=== PATIENT | female | born 1945 | race Caucasian/White ===

== ENCOUNTER 2018-07-24 12:16 | Inpatient (IN) | payer OTHER ==
[~2018-07-24] VITALS: Ht 162.6 cm; Wt 48.4 kg
[2018-07-24 12:17] VITALS: BP 115/57
[2018-07-24 12:19] VITALS: BP 108/63
--- NOTE | 2018-07-24 12:19 | NUR ---
PT SEEN IN ANOTHER ER FOR ANXIETY ON 07/05. PT'S REPORTS COMPLIANCE ISSUES OF MEDICATIONS PRESCRIBED ON THAT VISIT. PT UNABLE TO FOLLOW UP WITH PCP, DORIE THOMPSON. WHO ADVISED TO GO TO ER
[2018-07-24 13:05] LABS: URINE BILIRUBIN NEGATIVE (Negative); URINE BLOOD NEGATIVE (Negative); URINE CLARITY CLEAR; URINE COLOR YELLOW; URINE GLUCOSE-RANDOM* NEGATIVE (Negative); URINE KETONES NEGATIVE (Negative); URINE LEUKOCYTES-REFLEX NEGATIVE (Negative); URINE NITRITE-REFLEX NEGATIVE (Negative); URINE PROTEIN (DIPSTICK) NEGATIVE (Negative); URINE UROBILINOGEN 0.2 E.U./dl (0.2-1.0)
[2018-07-24 13:11] LABS: HEMATOCRIT 40.3 % (37.0-47.0); HEMOGLOBIN 13.2 gm/dL (12.0-15.0); MCH 30.8 pg (26.0-34.0); MCHC 32.9 g/dL (28.0-37.0); MCV 93.8 fL (80.0-100.0); RBC 4.29 mil/uL (4.20-5.00); WBC 5.1 thou/uL (4.0-11.0)
[2018-07-24 13:22] LABS: CALCIUM 9.8 mg/dL (8.5-10.1); CREATININE 0.7 mg/dL (0.6-1.0); POTASSIUM 4.2 mmol/L (3.5-5.1)
[2018-07-24] MEDS ORDERED: BUSPIRONE HCL5 MG PO (13:45)
[2018-07-24] MEDS ORDERED: CITRACAL + D31 EACH PO (13:46)
[2018-07-24] MEDS ORDERED: VITAMIN D1000 UNI1 PO (13:46)
[2018-07-24] MEDS ORDERED: CYMBALTA60 MG PO (13:47)
[2018-07-24] MEDS ORDERED: CLONAZEPAM 0.50.5 M1 PO (13:47)
[2018-07-24] MEDS ORDERED: LIDODERM1 EACH TRANSDERM (13:48)
[2018-07-24] MEDS ORDERED: SALMON OIL 1,01 EACH PO (13:48)
[2018-07-24] MEDS ORDERED: FLAXSEED OIL1000 MG PO (13:48)
[2018-07-24] MEDS ORDERED: ZEGERID OTC 201 EACH PO (13:49)
[2018-07-24 14:10] VITALS: BP 108/63
[2018-07-24 14:54] VITALS: BP 120/82
[2018-07-24 16:04] VITALS: BP 117/65
--- NOTE | 2018-07-24 19:10 | NUR ---
PT ARRIVES TO FLOOR VIA CART FROM ER -ACCOMPNIED BY ADAM WHO IS ALSO PT DPOA-PER INTERVIEW WITH PT/ AND REVIEW OF RECORDS SENT TO UNIT-PT IS REPORTED BY TO HAVE INCREASING ANXIETY-CONSTANT RUMINATION RE MULTIPLE ISSUES WHICH BELIEVES IS R/T RECENT COGNITIVE IMPAIRMENT- STATES MEMORY ISSUES STARTED EARLY JUN.-HE REPORTS IMPRESSION THAT DECLINE IN COGNITION OCCURED ABRUPTLY AND DENIES ANY SIGNIFICANT PRECIPITANT. BEHAVIORS WHICH HAVE BECOME UNMANAGABLE AT HOME ARE RESTLESSNESS AT NIGHT-POOR SLEEP-WHICH HAS SHOWN SOME IMPROVEMENT WITH USE OF KLONOPIN PRESCRIBED BY ER MD RECENTLY- ALSO REPORTS RECENT MED NON-COMPLIENCE WITH PT TAKING MEDS PRESCRIBED APPROX 50 PERCENT OF TIME-STATES THAT SHE IS SUSPICIOUS OF MEDS AND STATES "SHE DOESN'T THINK IM INVOLVED BUT SHE THINKS SOMEONE IS TRYING TO HARM HER THROUGH THE MEDS. REPORTS PT HAS PRIOR DX OF POTS DISEASE AND HAS BEEN FOLLOWED BY NEUROLOGIST FOR 20 YEARS FOR THIS CONDITION. PT IS NOTED TO BE SMILING BROADLY THROUGHOUT INTERVIEW-OFFERS MINIMAL VERBAL RESPONSES AND DEFERS TO TO ANSWER MOST QUESTIONS MAKING ASSESSMENT OF MS AND ORIENTATION DIFFICULT-DENIES C/O PAIN DISCOMFORT-COOPERATIVE WITH PHYSICAL ASSESSMENT- REQUESTING TO STAY WITH PT OVERNIGHT AND IS RELUCANT TO LEAVE UNIT-REQUESTING ADDITIONAL VISITING HOURS AND MENTIONED PREVIOUSLY ANSWERS QUESTIONS/PROVIDES HX FOR PT.VS OBTAINED BP 117/65 P 80
[2018-07-24 19:50] VITALS: BP 126/84
--- NOTE | 2018-07-24 21:00 | NUR ---
ASSUMED CARE OF THE PT AT 2015PM. THE PT WAS LYING IN HER BED ON HER RIGHT SIDE. ALERT ET ORIENTED X 3. MAKES NEEDS KNOWN. DENIES ANXIETY, DEPRESSION, SI, HI, A/V HALLUNICATIONS, DENIES RACING THOUGHTS AND NIGHTMARES. WALKS WITH A STEADY GAIT. REMAINS ON 12 MINUTE CHECKS FOR HER SAFETY.
--- NOTE | 2018-07-25 04:20 | NUR ---
THE PT HAS BEEN SLEEPING MOST OF THE NIGHT, HER HAS CALLED TWICE CHECKING ON HER. DENIES PAIN AT THIS TIME.
--- NOTE | 2018-07-25 08:59 | H ---
[facility] [place] [address] HISTORY AND PHYSICAL Name: ALICIA DAMON Room #: 518B-B ADM IN M.R.#: [id number] Admission: 07/24/18 ������������������ Attend Phys: Manjit Marr DO Discharge: ������������������ Date of : 41 Report #: [id number] THIS REPORT FOR: //name// CC: Manjit Marr Manasa Parker DATE OF SERVICE: 07/24/2018 INPATIENT PSYCHIATRIC EVALUATION ATTENDING PHYSICIAN: Manjit Marr DO. MARKETING PROGRAMS SPECIALIST: William Puentes M.D. SOURCE OF INFORMATION: Emergency Room records, chart review, discussion with her who accompanied her and interview with the patient at bedside on [facility]. CHIEF COMPLAINT: Suddenly disorganized. HISTORY OF PRESENT ILLNESS: This is a 72-year-old female who is new to me; however, has been extensively followed by the neurologist, Dr. Tenzin Patel at [facility]. The patient has quite a remarkable history for 20 years of autonomic dysfunction and decline. The patient, despite what has been described as extensive testing and followup, has not been given a specific known cause of this. Recently, the patient was seen by the spouse of Dr. Tenzin Patel, Dr. Omayra Patel, and there was a suspicion for dementia. Apparently, the patient in the last 30 days or so had neuropsychological testing at [facility] by Dr. Polanco I believe. The got a verbal report where they did not find dementia. The current kind of crisis items for presentation in the Emergency Room were increased anxiety, decline in mentation over the past 6-12 months and increasingly frequent panic attacks starting in June. Apparently, the patient had an involuntary hospitalization around that time. She was seen in the last week at [facility] ER and recently prescribed Klonopin. The patient became more confused, paranoid and delusional. In the ER, she denied visual or auditory hallucinations or any recent illness. Her [facility] presentation was 07/15/2018. There is a history of some depression and anxiety, only requiring outpatient treatment. At bedside evaluation, the patient is oriented to month, day, date and year. 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 She did endorse short-term memory loss in the last 6 months. MEDICATIONS: Her home medications are buspirone 5 mg p.o. b.i.d., clonazepam 0.5 mg at bedtime, duloxetine 120 mg p.o. daily, cholecalciferol 2000 units daily, calcium phosphate with vitamin D3 one daily, flaxseed oil [address] [place] [address] HISTORY AND PHYSICAL Name: ALICIA DAMON Room #: 518B-B ADM IN M.R.#: [id number] Admission: 07/24/18 ������������������ Attend Phys: Manjit Marr DO Discharge: ������������������ Date of : 41 Report #: [id number] daily, lidocaine transdermal daily to back, [place] 3 fatty acids 1000 mg 1 each p.o. as directed and omeprazole and sodium bicarbonate 1 each p.o. ALLERGIES: CONTRAST DYE, PENICILLINS, SULFONAMIDE AND ANTIBIOTICS. REVIEW OF SYSTEMS: Done in the Emergency Room: CONSTITUTIONAL: Negative for fever or chills. EYES: Negative for eye pain or visual changes. HENT: Negative for rhinorrhea or sore throat. RESPIRATORY: Negative for cough or shortness of breath. CARDIOVASCULAR: Negative for chest pain or palpitations. GASTROINTESTINAL: Negative for abdominal pain, nausea, vomiting or diarrhea. GENITOURINARY: Negative for burning, urgency, frequency or hematuria. MUSCULOSKELETAL: Negative for back pain or muscle pain. SKIN: Negative for any rashes. NEUROLOGIC: Negative for numbness, tingling or weakness. Otherwise, 10-point review of systems was negative. PHYSICAL EXAMINATION: VITAL SIGNS: In the Emergency Room, O2 sat 98%, BP 115/57, temperature is 37.4 degrees centigrade, pulse 69 and respirations 16. Weight was apparently 115 pounds. However, I believe on the [facility], she weighed less than that. NEUROLOGIC: The exam in the ER was remarkable for cranial nerves intact. Pupils equally responsive and reactive to light and accommodation. They stated a normal dzeqwy-so-zzda test. Normal 3-item recall, behavior and attention. Motor strength 5+/5 in all 4 extremities. Intact light touch sensation in all 4 extremities. No pronator drift. When I did an abbreviated neurologic exam on the Geriatric Psychiatry Unit, I found an abnormally positive right palmomental reflex, hyperreflexive bilateral patellar tendon. Interestingly, her pupils were at baseline constricted, minimally reactive to light. Her extraocular movements were intact and her eyes did accommodate. So those were my independent findings a little bit after she got up to the floor from the ER. LABORATORY DATA: Laboratories today in the Emergency Room, sodium 137, potassium 4.2, chloride 103, bicarbonate 26, anion gap 8, BUN 22, creatinine 0.7, estimated GFR 82, glucose 129 and calcium 9.8. CBC: H and H 13.2 and 40.3, white count 5.1 and platelet count 281,000. Urinalysis was negative. PAST MEDICAL HISTORY: Includes , both vaginal deliveries. In terms of her additional medical history, apparently there is a history of postural orthostatic tachycardia syndrome. She is no longer on midodrine or Florinef. Systolic blood pressure runs in the 90s or 100s, Dr. Mirza found this. DEVELOPMENTAL HISTORY: Born in [place]. She was a [place] child, so moved around [facility] [address] [place] [address] HISTORY AND PHYSICAL Name: ALICIA DAMON Room #: 518B-B ADM IN [facility].#: [id number] Admission: 07/24/18 ������������������ Attend Phys: Manjit Marr, Discharge: ������������������ Date of : 41 Report #: [id number] the country. She has an undergraduate degree in mathematics and a year in graduate school and music. Her has long-time [place] rotor casting machine operator in [place]. He retired in 2012. Did not elicit a family history of dementia. MENTAL STATUS EXAMINATION: This is a well-developed, undernourished-appearing female. Attention intact. Concentration intact. Speech normal rate, rhythm and tone. Thought process linear and goal directed. Thought content, some poverty of thought. No psychomotor agitation. Memory not formally tested, but will be done with the [facility]. PHYSICAL EXAMINATION: Otherwise, defer to hospice. ADDITIONAL INFORMATION: From paperwork at [facility], this was done on 07/06/2018 with [facility] Hospitalist. Apparently, she had a medical history of memory loss, anxiety, decreased mobility and autonomic insufficiency. She presented to the Emergency Room at the direction of her for concerns of altered mental status. At that time, over the past 5-6 days, the patient had been anxious, denying any external factors contributing to this. Does have underlying chronic pain, but this is typically not disabling to her. The patient reports that she feels that her brain is not working correctly. She was seen outpatient by Neurology on 07/04/2018 and they had concerns for anxiety and started her on BuSpar. The patient was afraid to take this and only took the first dose prior to the 07/06/2018. It feels like her mind is going way. At baseline, the patient is able to ambulate short distances about 1-2 minutes. She is unable to get on the treadmill in her home for short distances. She typically is able to eat on her own, but does require bed bath. Apparently, she has been pacing a lot at her home and hitting her side and is frustrated. Apparently, there is family history of a stroke in her mother. In addition to that surgical history significantly did report of breast biopsy, D and C and tonsillectomy. Apparently, at the time on 07/06/2018, they admitted her for AMS. They did a CT head. EEG and MRI were pending. They diagnosed mild rhabdomyolysis and disorder of the autonomic nervous system, prior diagnosis of POTS at the [facility]. I do have the note by Dr. Omayra Patel. This noted that she sleeps well and does kick in her sleep, has scalded dreams. does not think she has visual hallucinations. She is on very little medication. CT of the head shows mild atrophy and microangiopathy. Last night, the patient was paranoid about coming to the Emergency Room. She would put on her coat, but then would say she was not going. She seemed to be paranoid about someone trying to trigger or put her on more medications. Neuro exam by Dr. Patel, at that time, she was caught up in a position towards the right, difficult to get her to follow commands. She thought she was in [place], [place]. She was able to tell the name of her neurologist, but not the name of the primary care physician. At that time, she missed her age by [facility] [address] [facility] [place] [address] HISTORY AND PHYSICAL Name: ALICIA DAMON Room #: 518B-B ADM IN M.R.#: [id number] Admission: 07/24/18 ������������������ Attend Phys: Manjit Marr DO Discharge: ������������������ Date of : 41 Report #: [id number] 10. She thinks she is 72 rather than 82. She was able to tell that she had children, was not able to name her children. Her pupils at that time were equal, round and reactive to light. Extraocular movements were in full direction with psychiatric visual pursuit. She had mild facial masking, inattentive for visual field testing. No facial droop found, no drift when she holds her arms in the air; however, she was tremulous. She has postural intention tremor, fairly symmetric. She has mild cogwheeling in her arm. She has increased tone in her legs. She gets angry when her tongue was tested. Her reflexes are brisk, 3+ throughout. Plantar responses were withdrawal versus extensor. So, Dr. Patel noted she suspected Lewy body dementia. History obtained from the patient's , with history of anxiety, broad fluctuations in her sensorium and cognition, tremor and paranoia much worse after not sleeping for 48 hours. History of dysautonomia, previously diagnosed as POTS at [facility]. However, she has not been having syncopal events. 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 LABORATORY DATA: Laboratories done at [facility] showed a CBC grossly normal. Alkaline phosphatase was 67, ALT 27, AST slightly elevated at 53 and total bilirubin 1.0. BUN 16. Albumin was 3.7. CBC was grossly normal. She had venous lactate of 1.2. Serum alcohol less than 10. UDS was negative. Urinalysis negative. CT head without contrast has already been reviewed. Additional information, she had a half-hour bedside EEG done. The findings on multichannel digital EEG recording, impression, abnormal EEG in sedated state. Diffuse background slowing, mixed theta-delta range noted. No focal slowing or paroxysmal perform activity and no alpha rhythm discernible. These findings are consistent with a diffuse encephalopathic process of nonspecific etiology. Absence of epileptiform activity does not preclude the diagnosis of a seizure disorder. I am trying to see if they had MRI results. I do not believe she cooperated with an MRI that was entertained. Discharge medications look about the same. ASSESSMENT: Unspecified psychotic disorder. cannot exlcude a major neurocognitive disorder, as has been already entertained. A Lewy Body dementia is a possibility; however, I will have to clarify symptomatology. I also will have to discuss the benefits of an MRI as it is unlikely anything can be done in terms of disease reversal. Anxiety disorder, unspecified, likely due to general medical condition and diagnoses above. PLAN: Evaluate, stabilize and obtain collateral. I discontinued the BuSpar and clonazepam. I reduced duloxetine to 60 mg daily. Other medications [address] [address] HISTORY AND PHYSICAL Name: ALICIA DAMON Room #: 518B-B ADM IN M.R.#: [id number] Admission: 07/24/18 ������������������ Attend Phys: Manjit Marr DO Discharge: ������������������ Date of : 41 Report #: [id number] Hermes will manage. I would to avoid narcotics in this case. Plan to do [facility] or [facility] on her tomorrow. I would like to obtain neuropsychological testing from [facility]. I advised the long-term care facility may be required in this case. Time spent on interview, review of records, coordination of care is at least 60 minutes. ��������������������������������������������� <ELECTRONICALLY SIGNED> ���������������������������������������� By: Manjit Marr DO ��������������������������������������������� 07/25/18 [id number] Manjit Marr DO /nt
--- NOTE | 2018-07-25 12:49 | NUR ---
PSYCHOSOCIAL ASSESSMENT Diagnosis: UNSPECIFIED PSYCHOSIS Admit Date: 07/24/18 Psychiatrist: RAMAKRISHNA Symptoms associated with current admission: Anxiety/panic Paranoid ideation Hallucinations Depressed mood Presenting problems: Pt was panic around the house, and not sleeping. Pt stated that the paramedics was not real or te physcian. Precipitating Factors: Non-compliance psychothx Non-compliance medication Comments: Pt refuse to take clonapenman, and Buspar. History of High Risk Behavors: Other Suicide Risk Factors: D A-Signs of alcohol/substance abuse w/ suicide ideation B-Recent suicidal thoughts or attempts C-Recent thoughts or attempts of harming someone else D-Altered mental status due to psychiatric/chem dep etiology E-The behavior exists - add comment PSYCHIATRIC HISTORY Age of onset: 72 Prior hospitalizations: 1-2 times hospitalized Hospital names and dates, if available: Most Recent Outpatient HX: Additional information: Legal Status: Voluntary Guardian/Conservatorship type: DPOA Contact name: Brian Wayne Contact phone: [phone] Other: Name: Phone: Other legal issues: (Arrests/convictions Current Status) None P.O. Name and Phone #: FAMILY HISTORY Place of : [place] Raised in: [facility] # Siblings & order: 3 sibilings and the youngest Describe relationships within family of origin: Pt is close to her sibilings. They may not be able to communicate every week but does have a relationship. Any psychiatric or substance abuse problems within family of origin: N Has patient been sexually or physically abused, neglected or been taken advantage of financially? N Has the abuse been reported? N Other pertinent family information: Marital history/significant relationships: Domestic violence: N Children ages & who is caring for them: Pt has 2 adult child Is child welfare involved? N Drug history: None Alcohol Use: Frequency: Quantity: Have you ever felt you ought to Cut down on drinking? Have people Annoyed you by criticizing your drinking? Have you ever felt bad or Guilty about your drinking? 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 AXIS SCREENING TOOL [place] I Mood Disorders: Anxiety Disorder [place] II Personality/Mental Retardation: [place] III Medical Impairment: Alzheimer's [place] IV Problem(s) with: Health care services Other psych/environ prob [place] V: 50-Serious w/impairment Additional [place] comments: PERSONAL BACKGROUND Relevant cultural issues (ethnicity, values, beliefs, spiritual): Spiritual Mormonism: Temple Importance of taoism to patient: High What hobbies/interests does the patient have? Bird watching math tutoring home schooled Enjoy been around people Sexual orientation (relevant impact to current treatment): Heterosexual : Where did you serve: Branch of service: Rank: Discharge status: Are you a combat ? Occupational/Work: Do you work? N Do you want to work? N How many hours do you work/week? 0 How many jobs have you had in the past 5 years? 0 Do you need assistance finding a job? N Does the patient need assistance in job training? N Source of income: SSI Does patient have a Payee? Y Payee name: Brian Wayne Approximate monthly income: 1000 Does patient have adequate funds for next 30 days? Y Education background: Bachelor degree Highest grade completed: 12th grade Other Educational/training programs: Functional deficits: Explain functional deficits: Current living situation: House/apartment Address/phone where pt. is livin[address] [place] [id number] Does the patient plan to continue there after DC? Yes Patient lives with: Spouse Will family/significant other be involved in treatment? Other community support services utilized: Pt will need continue seen a psychiatrist for outpatient services Support System Available (family/friend) Name: Brian [employer] Relationship: Name: Hugo [employer] Relationship: Daughter Name: Brian Avendaño [employer] Relationship: Son Patient strengths: Family support Education Patient's assets: Positive marriage Good self care Patient's weaknesses: Chronic hx mental illness Health problems Additional weaknesses: Patient's perception of current social work therapist/case management needs: Pt does not like to speak with SW. Pt is a private woman. PRELIMINARY DISCHARGE PLAN Discharge plan/Community resource contacts: Pt will be discharging home with her , and probably recieving HH. Discharge needs: Pt will need outpatient services. Problems anticipated on discharge: Compliance w/ med regimen Compliance w/OP treatment Comments: (factors affecting DC plan/pt. response/interventions) Pt will be discharge home with her , and continue treatment with outpatient services.
--- NOTE | 2018-07-25 13:04 | NUR ---
ASSUMED PATIENT CARE AT 0730. PATIENT WALKING, PACING IN HALLWAY, REFUSING TO STOP WALKING. OCCASSIONALLY REACHED UP TO SIDES OF HEAD AND TENSED UP. ALSO, OBSERVED TENSING UP WHILE WALKING, HYPEREXTENDING HER ARMS, WHILE SHAKING HER ARMS. CRIES FREQUENTLY WITHOUT STIMULATION OF ANY KIND. SPOUSE AND DAUGHTER PRESENTED TO UNIT TO MEET WITH THE DOCTOR. GABBI VERY UPSET OVER HER MOTHER'S MENTAL DECLINE FOR THE PAST TWO WEEKS. PATIENT REFUSED ALL MEDICATIONS, BREAKFAST AND LUNCH, WELL NURSE PERFORMING A NURSING ASSESSMENT. IN HER ROOM AT THIS TIME, REFUSING GROUP.
[2018-07-25 14:12] VITALS: BP 115/78
[2018-07-25 19:36] VITALS: BP 123/72
[2018-07-25 19:39] VITALS: BP 123/72; BP 152/74
[2018-07-25 21:43] VITALS: BP 123/72
--- NOTE | 2018-07-26 01:26 | NUR ---
PT IN ROOM AT [facility]. CURLED UP IN BED. REFUSED HS SEROQUEL. REPAINED IN ROOM UNTIL 44. OUT OF ROOM, TEARFUL, INCONSOLABLE, POSTURING IF SHE IS IN SOME SORT OF PAIN. REFUSING TO EXPLAIN BEHAVIOR. CALMED AFTER REASSURANCE THAT SHE IS SAFE HERE. CONTINUES TO WANDER THE HALLS, PERIODICALLY STARING AT ACTIVITY BOARD. SAD AND DEPRESSED AFFECT.
--- NOTE | 2018-07-26 03:08 | NUR ---
CONTINUES TO WANDER THE UNIT. IN AND OUT OF ROOM. PERIODICALLY SITTING IN DAYROOM. REFUSING TO INTERACT WITH STAFF, BUT SEEMS TO HAVE CALMED. DOES GRIMACE AND GESTURE PERIODICALLY, BUT BETTER THAN EARLIER.
--- NOTE | 2018-07-26 04:04 | NUR ---
AROUND 0400, PT APPROACHED STAFF."I WANT TO TELL YOU SOMETHING. SUZIE ON THE CROSS FOR YOUR SINS AND HE WILL FORGIVE YOU." SHE THEN BROKE INTO A BIG GRIN. MORE RELAXED, BUT REMAINS UP IN DAY AREA.
--- NOTE | 2018-07-26 08:30 | NUR ---
CLIENT HAS BEEN WALKING AROUND UNIT CRYING, DID SIT IN DINNING ROOM WITH BREAKFAST. ASKING IF HAVING PAIN AND WHERE, STATED SHE DIDN'T WANT THIS NURSE TO ASK ABOUT THE PAIN.
--- NOTE | 2018-07-26 08:47 | NUR ---
ADM SERAQUEL 25MG PO FOR BEING VERY UPSET THIS AM. WANDERING AROUND UNIT, HUNCHING DOWN TO HIDE FROM NURSES AT THE NURSING STATION. HOLDING FACE IN HANDS AND CRYING.
--- NOTE | 2018-07-26 08:47 | NUR ---
DID TAKE AM MEDS WITHOUT ANY ISSUES. DIDN'T WANT LIDOCAINE PATCH.
[2018-07-26 10:05] VITALS: BP 123/72
[2018-07-26 10:06] VITALS: BP 123/72
--- NOTE | 2018-07-26 10:58 | NUR ---
HERE TO VISIT. CLIENT ABLE TO TALK TO HIM.
--- NOTE | 2018-07-26 14:24 | NUR ---
GETTING UP AND DOWN WALKING. TALKING TO SELF. WAS AFRAID WHEN HARDWARE ENGINEERING MANAGER CAME TO UNIT, CRYING HOLDING FACE WITH HANDS.
--- NOTE | 2018-07-26 16:59 | NUR ---
ADM SERAQUEL 200MG PO, CLIENT RELUCTANT TO TAKE THE MED. LOOKING AT PACKAGE MED COME FROM. DID TAKE WITH ASSISTANCE WITH NURSE AND FAMILY.
[2018-07-26 22:08] VITALS: BP 121/73
--- NOTE | 2018-07-26 23:05 | NUR ---
PT WAS OBSERVED WALKING UP AND DOWN THE HALLWAY MULTIPLE TIMES BEFORE GOING BACK TO HER ROOM.PT'S SPOUSE CALLED AND SPOKE TO PT,PER ,HE TOLD HER THAT HE WOULD BE COMING IN THE AM TO SEE HER BUT PT STATED THAT THE FACILITY WOULD NOT ALLOW HIM TO COME IN.FREQUENT CHECKS DONE WHILE PT WAS IN THE ROOM.PT WAS ANXIOUS,LOOKED TIRED AND CONTINUED TO PACE AROUND IN HER ROOM.THIS NURSE OFFERED PRN SEROQUEL TO HER SHE ACCEPTED BUT LATER CHANGED HER MIND.PT WAS ENCOURAGED TO TAKE THE MEDICATION TO HELP HER CALM DOWN AND SLEEP.PT HELD THE MEDICATION IN HER HAND AND WAS SMELLING THE MEDICATION.PT FINALLY TOOK THE MEDICATION AFTER SOME ENCOURAGEMNET.IMMEDIATELY THIS STEPPED OUT OF PT'S ROOM PT STARTED COUGHING SO TO GET THE MEDICATION OUT.NURSE WENT BACK TO PT'S ROOM TO CHECK ON PT,SHE ADMITTED THAT SHE WANTED TO GET THE MEDICATION OUT BUT SHE STATED THAT SHE WILL NOT DO THAT AGAIN.PT LAID ON HER BED AND IS ASLEEP AT THIS TIME.WILL CONT TO MONITOR.
[2018-07-27 07:19] VITALS: BP 125/76
--- NOTE | 2018-07-27 12:24 | NUR ---
PATIENT WAS IN BED WHEN CARE ASSUMED, SHE WAS ENCOURAGED TO GET OUT OF BED FOR BREAKFAST WHICH SHE DID. PATIENT CONSUMED ABOUT 50% OF BREAKFAST. SHE IS TEARFUL AT TIMES, DOES NOT SIT STILL IN A CHAIR, PREFERS TO LAY IN BED. PATIENT DID STAY UP IN DAY ROOM FOR MORNING GROUP ACTIVITY. SEROQUEL 50MG GIVEN AT [address] ORDER PRIOR MRI PROCEDURE. PATIENT TRANSPORTED TO RADIOLOGY , ACCOMPANIED BY THIS RN AND PATIENT'S SPOUSE. MRI COMPLETED, RESULT IN CHART, PATIENT HAS SINCE RETURNED. PATIENT TOOK A FEW BITE OF LUNCH, DRANK ONE BOTTLE OF ENSURE. SHE DENIES SUICIDAL/HOMOCIDAL IDEATION. WHEN ASKED ABOUT DEPRESSION AND ANXIETY, PATIENT STATES " I DON'T KNOW". AFFECT IS FLAT, POOR EYEY CONTACT. PATIENT IS NOW CALM, SITTING IN DAY ROOM WATCHING TV, NO AGGRESSION OR AGITATIION NOTED. PATIENT DENIES AUDDITORY/VISUAL HALLUCINATION, WILL MONITOR FOR SAFETY.
[2018-07-27 20:36] VITALS: BP 117/71
--- NOTE | 2018-07-27 22:37 | NUR ---
ASSUMED CARE OF THE PT AT 2015PM. ALERT ET ORIENTED X 1. MAKES NEEDS KNOWN. WALKS WITH A STEADY GAIT. TOOK HER MEDICATION WITHOUT ANY DIFFICULTY. DENIES SI AND HI CURRENTLY. DENIES ANXIETY AND DEPRESSION. DENIES A/V HALLUNICATIONS. REMAINS ON 12 MINUTE CHECKS.
[2018-07-28 14:48] VITALS: BP 103/63
--- NOTE | 2018-07-28 17:10 | NUR ---
PATIENT BEHAVIOR IMPROVED. POSITIVE AND PLEASANT. NO TEARS OR EMOTIONAL OUTBURSTS. SMILING AND AGREEABLE. SELF CARE - DRESSED HERSELF AND OUT ON UNIT WALKING THE CORRIDORS. STATED FEELING BETTER - PLEASANTLY CONFUSED - MEDICATION COMPLIANT. QUESTIONED HER CYMBALTA EARLIER THIS MORNING AND WAS HESITANT TO TAKE BUT AGREED AFTER REASSURANCE THAT IT WAS BENEFICIAL FOR DEPRESSION. DAUGHTER VISITED EARLIER IN THE DAY AND QUESTIONED HOW SHE WAS TOLERATING HER MEDICATIONS - SHE WAS PLEASED TO HEAR SHE WAS CALMER AND MORE INTERACTING WITH STAFF AND PEERS. ATTENDED GROUPS AND WAS RESPONSIVE TO ACTIVITY PRESENTED. LATER AT DINNER TIME MORE FAMILY VISITED AND PATIENT APPEARED VERY PLEASED AND VISIT WENT WELL. APPETITE HAS BEEN GOOD AND MEALS EATEN. MADE NEEDS KNOWN MORE READILY TODAY. DENIES ANY S/I AND STATED ANXIETY LEVELS IMPROVED. SPENT TIME AMBULATING AROUND UNIT EARLIER WITH WELL.
[2018-07-28 19:20] VITALS: BP 110/71
[2018-07-29 00:08] VITALS: BP 110/71
--- NOTE | 2018-07-29 03:28 | NUR ---
PT SMILING AND RELAXED AT BEGINNING OF EVENING. OUT WITH PEERS WATCHING TV. AFTER SNACKS, PT REFUSED HS MEDS. CALLED, AND ENCOURAGED HER TO TAKE HS MEDS, WHICH SHE DID. TO BED SHORTLY THEREAFTER, AND SLEPT WELL THROUGH THE NIGHT W/O INCIDENT.
[2018-07-29 07:47] VITALS: BP 114/49
--- NOTE | 2018-07-29 08:30 | NUR ---
CLIENT UP AND HAVING BREAKFAST. AFTERWARDS WENT BACK TO BED. ENCOURAGED HER TO GO TO AM GROUP. JUST WANTED TO SLEEP. DIDN'T TAKE AM MEDS AT THIS TIME.
[2018-07-29 10:48] VITALS: BP 114/49
[2018-07-29 12:00] VITALS: BP 100/65
--- NOTE | 2018-07-29 12:00 | NUR ---
CLIENT STILL SLEEPING. WAKING UP WITH GAS PUMPING STATION OPERATOR AND FAMILY SUPPORT. WALKED WITH ASSISTANCE WITH FAMILY TO DINNING ROOM. UNABLE TO EAT BREAKFAST, FAMILY STATED MORE SEDATIVE THAN YESTERDAY. PRIYA ACCOUNT MAINTENANCE REPRESENTATIVE HERE TO TALK TO FAMILY ABOUT INCREASE IN SERAQUEL. STATED SHE HASN'T BEEN ON THAT MED BEFORE.
--- NOTE | 2018-07-29 12:51 | NUR ---
CONCERNED ABOUT BEHAVIOR OF , THIS IS NOT NORMAL. HE WANTS TO TAKE TO DR. PARSONS. CALLED DR. PARSONS AND SHE STATED HE WANTED DR. PARSONS PSYCH. TOLD THAT MARC POWERS HERE TO SEE HIM THIS AM AND THEY TALKED.
--- NOTE | 2018-07-29 13:00 | NUR ---
CALLED PRIYA TRAN TO TALK TO . WANTS TO TALK TO THE PSYCH. . GIVEN INFO ON SEROQUEL AND HER MEDS THAT SHE IS TAKING HERE. GAVINO TALKING WITH FAMILY AT THIS TIME. SON HAS BEEN WALKING SOPHIA AROUND UNIT.
--- NOTE | 2018-07-29 15:05 | NUR ---
CLIENT STILL RESTING WITH EYES CLOSED.
[2018-07-29 15:54] VITALS: BP 108/52
--- NOTE | 2018-07-29 15:55 | NUR ---
VITAL SIGNS STABLE, CLIENT AWAKE IN BED WITH EYES OPEN. NOTICED SHE HAD SOME SHAKING TO EXT WITH VS.
--- NOTE | 2018-07-29 16:00 | NUR ---
AND DAUGHTER HERE TO SEE PATIENT. SHE HAS BEEN IN BED MOST OF DAY. DIDN'T EAT LUNCH OR DINNER. WANTED TO KNOW IF HER CONDITION WAS FROM LEWY BODY DEMENTIA AND A REACTION TO MEDICATION. THE STATED MAYBE CYMBALTA DOSE IS TOO MUCH.
--- NOTE | 2018-07-29 17:50 | NUR ---
ABDOUL spoke with the family that Dr. Marr will be in to see the pt on July 30, 2018. The family stated that the pt is not eating, and sleep. The family feels that seroquel is not good for pt that Lewy body dementia. Dr. Marr stated that the hospitalist can come to rule out any medical. ABDOUL notified the nurse Alta to come consult the hospitalist per the request of Dr. Jensen. ABDOUL will follow-up with family on tomorrow.
--- NOTE | 2018-07-29 18:14 | NUR ---
CALLED DR. PARSONS HOSPITALIST FOR ORDERS.
--- NOTE | 2018-07-29 18:39 | NUR ---
LEFT MESSAGE WITH LIZA ABOUT LABS ORDERED.
[2018-07-29 19:35] VITALS: BP 97/60
[2018-07-30 00:08] VITALS: BP 97/60
--- NOTE | 2018-07-30 02:43 | NUR ---
PT CONTINUES TO ISOLATE IN HER ROOM THIS PM. CURLED UP IN A BALL ON HER BED. ALLOWED STAFF TO DO VS AND ASSESSMENT, BUT UNWILLING TO SHARE HOW SHE FEELS AND WHAT HER GOALS MAY BE. TRIED TO GET HER TO DISCUSS FEELINGS ABOUT FAMILY VISIT. ONLY GRIMACED AND APPEARED TO BE ON THE EDGE OF TEARS. TOOK HS MED WITH ENCOURAGEMENT. SLEPT THROUGH THE NIGHT.
[2018-07-30 04:16] LABS: HEMATOCRIT 41.6 % (37.0-47.0); MCH 31.3 pg (26.0-34.0); MCHC 33.6 g/dL (28.0-37.0); MCV 93.2 fL (80.0-100.0); RBC 4.46 mil/uL (4.20-5.00); WBC 5.8 thou/uL (4.0-11.0)
[2018-07-30 04:25] LABS: ALBUMIN 3.6 g/dL (3.4-5.0); CALCIUM 9.9 mg/dL (8.5-10.1); CREATININE 0.7 mg/dL (0.6-1.0); POTASSIUM 4.1 mmol/L (3.5-5.1); TOTAL BILIRUBIN 1.2 mg/dL (<0.1-1.0); TOTAL PROTEIN 6.3 g/dL (6.4-8.2)
[2018-07-30 05:52] LABS: URINE BILIRUBIN NEGATIVE (Negative); URINE BLOOD TRACE (Negative); URINE CLARITY SL CLOUDY; URINE COLOR YELLOW; URINE GLUCOSE-RANDOM* NEGATIVE (Negative); URINE KETONES TRACE (Negative); URINE LEUKOCYTES-REFLEX 1+ (Negative); URINE NITRITE-REFLEX NEGATIVE (Negative); URINE PROTEIN (DIPSTICK) NEGATIVE (Negative); URINE SPECIFIC GRAVITY 1.015 (1.005-1.035); URINE UROBILINOGEN 0.2 E.U./dl (0.2-1.0)
[2018-07-30 06:00] LABS: BACTERIA-REFLEX >30 Many /HPF (None Seen); CASTS None Seen /LPF (None Seen); CRYSTALS None Seen /LPF (None Seen); MUCUS None Seen strn/LPF (None Seen); SQUAMOUS None Seen /LPF (0-3); URINE RBC 3-10 Few /HPF (0-2)
[2018-07-30 07:00] VITALS: BP 126/45
[2018-07-30 10:49] VITALS: BP 97/60
--- NOTE | 2018-07-30 11:19 | NUR ---
UP ON THE UNIT. SPOKE WITH THE DRHammad FOR A TIME. SPOKE WITH THE JUNIOR ELECTRICAL ENGINEER. FAMILY HERE TO VISIT WITH PATIENT. PT. QUICK TO ANGER WHEN STAFF DOES NOT LET HER DO SHE WISHES. CALLED THE DRHammad AND IDIOT, STAFF STUPID WHEN SHE WAS ASKED TO NOT BE INTRUSIVE WITH ANOTHER PATIENT. WANTING STAFF TO WALK WITH HER OR SIT BY HER ALL THE TIME. TOOK MEDICATIONS WITHOUT PROBLEMS NOTED.
[2018-07-30 12:16] VITALS: BP 97/60
--- NOTE | 2018-07-30 16:06 | NUR ---
PT. IN BED WHEN THIS CLINIC PHYSICIAN DIRECTOR ASSUMED CARE AT 0715. PT. REFUSED TO GET UP FOR BREAKFAST INITIALLY AND STAFF NEEDED TO PERSUADE HER TO COME OUT OF HER ROOM. ROOM DOOR LOCKED PER ORDER. PT. THEN LAYED DOWN ON THE FLOOR. STAFF PICKED UP PT. OFF THE FLOOR AND PUT HER IN A W/C, AND WAS TAKEN TO THE DINING ROOM. PT. GOT UP AND LAYED DOWN ON THE FLOOR AGAIN. SHE WAS WAILING AND SOBBING. SHE REFUSED TO COMMUNICATE WITH STAFF. THIS BEHAVIOR WAS REPEATED SEVERAL TIMES. DR. DURBIN CAME ONTO THE UNIT AND SAW BEHAVIOR OF PATIENT. ORDERED ATIVAN 0.5 MG PO FOR THE PT. THIS WAS GIVEN ORDERED. FAMILY HERE AT 1000 FOR VISIT AND FAMILY MEETING. PT. MUCH MORE ANIMATED AFTER FAMILY MEETING, FEEDING HERSELF AND EVEN SEEING AN OCCASIONAL SMILE. STATED PT. WOULD MORE THAN LIKELY BE DISCHARGED TO HOME TOMORROW. PT. REFUSED MORNING MEDICATIONS BUT DID TAKE ATIVAN. ORDERED AN ABO FOR UTI THIS AFTERNOON. PT. DID TAKE THIS MED ORDERED. HERE AGAIN FOR 4 PM VISITING. PT. AGAIN SAT ON THE FLOOR. THIS RN AND TALKED TO HER AND SHE DID GET UP OFF THE FLOOR AND WALK AWAY INTO THE DINING ROOM.
--- NOTE | 2018-07-30 16:09 | NUR ---
SANDRA participated in family meeting with Dr. Marr, Jessica LÓPEZ, and Pt's family. Pt was also in attendance. The family was concerned about the PT diagnosis of MDD and wonder some physical health dx had been ruled out for Pt's condition. Dr. Marr was able to talk to the family about their concerns and explained his Dx. Pt wanted information of PHP program. Sandra was able to provide basice information of what PHP program is and the services offered in the program. Dr. Marr did state he is looking to discharge the Pt Tuesday07/31/18. Pt and family did not have any objection to discharge. Pt will need a referal to PHP program. SANDRA informed the family that SANDRA Mckeon will be able to assist them concerning the matter.
[2018-07-30 19:38] VITALS: BP 107/57
--- NOTE | 2018-07-31 02:12 | NUR ---
WITHDRAWN TO ROOM AT START OF SHIFT-REFUSED TO COME TO DAYROOM FOR HS SNACK WITH PEERS-WHEN APPROACHED IN ROOM FOR HS MEDS AND ASSESSMENT WAS MINIMALLY VERBAL BUT DID RESPOND TO YES/NO INQUERIES R/T PHYSICAL ASSESSMENT BUT OFFERS NO ADDITIONAL RESPONSES-WHEN ASKED TO DESCRIBE MOOD STATES "OK" "TIRED" DENIES C/O PAIN. FACIAL EXPRESSION IS ANXIOUS AND APPEARS HYPERVIGILANT RE ANOTHER PT/STAFF MEMBER IN HALLWAY BUT WHEN QUESTIONED IF SHE FELT AFRAID OR WORRIED ABOUT SAFTEY HERE STATED "NO" .COMPLIENT WITH HS MEDICATIONS-DID TAKE FULL GLASS OF H20 WITH HS MEDS WITH PROMPTING-PM BP NOTED TO BE SLIGHTLY LOW AT 107/57-P-83 DENIES DIZZINESS-ADVICED TO GET UP SLOWLY TO AVOID FALLING AND ENCOURAGED TO USE DOMINGO FOR ASSIST TO PREVENT FALLS-STATES UNDERSTANDING.
[2018-07-31 07:21] VITALS: BP 106/80
[2018-07-31 11:05] VITALS: BP 106/80
--- NOTE | 2018-07-31 11:07 | NUR ---
Patient Name: ALICIA DAMON Admission Date: 07/24/18 DISCHARGE PLAN: Pt will be discharge home with her . Care Assessment: Pt was assessed by Dr. Marr. Pt was put on new medication to see if it assist with her mood, and behavior disorder. Pt was diagnosed with severe Major Depression disorder. Level II Assessment: None Transportation: Pt will be transported home by her . Special Instructions/Notes: Pt has been very leitargic, and sleeping irregular. Pt will need to be schedule for outpatient services through [facility] (formerly [facility]3]. DISCHARGE TO FACILITY: Facility: Phone: Fax: Address: Contact Name: Phone: PCP: [facility] Psychiatrist:
[2018-07-31 12:41] VITALS: BP 106/80
[2018-07-31] MEDS ORDERED: MACROBID 100 M100 M1 PO (12:50)
[2018-07-31] MEDS ORDERED: CYMBALTA30 MG PO (12:51)
[2018-07-31] MEDS ORDERED: SEROQUEL XR 20200 MG PO (12:52)
[2018-07-31] MEDS ORDERED: ATIVAN0.5 MG PO (12:52)
[2018-07-31] MEDS ORDERED: PROTONIX 20 MG20 M1 PO (12:53)
--- NOTE | 2018-07-31 14:22 | NUR ---
ASSUMED CARE AT 0715 TODAY. ANIMATED TODAY. HERE AT 1045 TO SEE PATIENT. HE ARRIVED AGAIN AT 1315 FOR DISCHARGE OF PATIENT. PAPERS REVIEWED WITH . SCRIPTS CALLED TO [facility] AT [address] . APPOINTMENT SET UP TO OUTPATIENT THERAPY/GROUPS AND INFORMATION GIVEN TO THE . ALL BELONGINGS, DISCHARGE PAPERS LEFT WITH AND PT. PT. WAS TALKING ABOUT NEED TO RECONCILE HER BILL BEFORE HER DISCHARGE. SHE WAS LOOKING AND VERBALIZING NERVOUSNESS ABOUT THIS BILL. AND THIS RN ATTEMPTED TO REASSURE PT. THIS WAS TAKEN CARE OF. PT. PLACED IN W/C, TAKEN TO THE FRONT OF THE HOSPITAL, WAS HELPED INTO THE FAMILY CAR, ALONG WITH DISCHARGE PAPERS AND BELONGINGS. THEY DROVE AWAY TO GO HOME.
--- NOTE | 2018-07-31 16:58 | EKG ---
[address] [address] [facility] [place] [address] ELECTROCARDIOGRAM REPORT Name: RITU DAMONENID Room #: 518- DIS IN M.R.#: [id number] ������������������ Admission: 07/24/18 ������������������ Attend Phys: Manjit Marr DO Discharge: 07/31/18 ������������������ Date of : 41 Report #: [id number] ����������������������������������������������������������������� [id number] THIS REPORT FOR: //name// [facility] Test Date: 2018-07-30 Test Time: 13:41:27 Pat Name: ALICIA DAMON Department: Room: [facility] Gender: F Filling Machine Tender: ADÁN : 1945 Requested By: Manjit Marr Order Number: [id number] MD: Esvin Moon Measurements Intervals [place] Rate: 94 P: 72 [place]: 136 QRS: 5 QRSD: 83 T: 74 QT: 334 QTc: 418 Interpretive Statements Sinus rhythm Nonspecific ST segment abnormality No previous ECG available for comparison Electronically Signed On 07-31-2018 16:57:48 CDT by Esvin Moon [email or web address] ��������������������������������������������� <ELECTRONICALLY SIGNED> ���������������������������������������� By: Esvin Moon MD, [facility] ��������������������������������������������� 07/31/18 1657 1341 1341 Esvin Moon MD, FACC /EPI
--- NOTE | 2018-08-01 23:11 | D ---
[facility] [place] [address] DISCHARGE SUMMARY Name: ALICIA DAMON Room #: 518B-B [facility] IN M.R.#: [id number] Admission: 07/24/18 ������������������ Attend Phys: Manjit Marr DO Discharge: 07/31/18 ������������������ Date of : 41 Report #: [id number] THIS REPORT FOR: //name// CC: Manjit Marr Manasa Parker DATE OF SERVICE: 07/31/2018 INPATIENT PSYCHIATRIC DISCHARGE SUMMARY ATTENDING PHYSICIAN: Manjit Marr DO STRATEGIC COMMUNICATIONS MANAGER AT THE TIME OF DISCHARGE: Kelli Dior MD DISCHARGE DIAGNOSES: Major depressive disorder, single episode, severe degree with psychotic features, improved. Medical comorbidities include postural orthostatic tachycardia syndrome, gastroesophageal reflux disease, extra salt diet, acutely 2 g of salt per day at least. Activity as tolerated. Recommend against driving at this time. DISCHARGE MEDICATIONS: Are as follows: Nitrofurantoin 100 mg p.o. b.i.d. for 11 more doses for urinary tract infection, duloxetine 90 mg p.o. daily for depression, 30-day supply given, Seroquel XR 200 mg p.o. at bedtime for psychosis and mood stabilization, 14-day supply given; lorazepam 0.5 mg p.o. q. 6 p.r.n. for anxiety, given for #15; Protonix 20 mg p.o. daily in the a.m. for GERD 1/2 tablet before breakfast, cholecalciferol 2000 international units p.o. daily, calcium phosphate, vitamin D3 one tab each p.o. supplementation, Lidoderm patch transdermal 12 hours on and 12 hours off. The patient had an electrocardiogram on 07/24/2018 significant for QTc of 418, otherwise grossly normal. LABORATORY DATA: This admission, CBC showed H and H 14.0 and 41.6, white count 5.8, platelets 266. Chemistry done on 07/30/2018 was within normal limits with BUN 26, glucose 65, total bilirubin 1.2, total protein 6.3. Vitamin B12 of 559, vitamin D 62.3, prealbumin 30, which was within normal limits. Urinalysis was abnormally positive for bacteria. Urine culture is still pending. I elected to go ahead and treat the patient with 7 days of nitrofurantoin empirically. REASON FOR ADMISSION: Odd behavior, labile mood, refusal to bathe and change her clothes and eat appropriately several days prior to admission. HOSPITAL COURSE: The patient was admitted to Geriatric Psychiatry Unit. The [address] [address] DISCHARGE SUMMARY Name: ALICIA DAMON Room #: 518B-B [facility]#: [id number] Admission: 07/24/18 ������������������ Attend Phys: Manjit Marr, DO Discharge: 07/31/18 ������������������ Date of : 41 Report #: [id number] patient had a variable course from becoming aggressive childish juvenile behavior to appropriate adult behaviors, then aggression this past weekend; then, she improved once again today. Numerous family meetings were held with her , her daughter and her son. There seemed to be a fair amount of behavior of the family that it would attribute things to her autonomic dysfunction. Family had deferred understanding a conceptualization of the diagnosis is depression. Recommendations were given for the patient attend a partial hospitalization program at the time of discharge. They requested [facility] as this is out of network. At the time of discharge, they were sent to [facility] for their in-network PHP. PHYSICAL EXAMINATION: MUSCULOSKELETAL: Normal gait and station. VITAL SIGNS: On the day of discharge, temperature 36.6, pulse rate 94, respirations 16, BP 106/80, O2 sat 94%, somewhat of an increase today. This is a well-developed, thin female, appearing nearly stated age. Attention, concentration limited. Speech, increased rate. Thought process, linear, generally goal directed. Thought content, worried about discharge. Memory not formally tested today. Insight, fairly limited. judgment fair. Fund of knowledge at least average. Prognosis for this patient is guarded given the chronicity of her neurological complaints and limited tolerance for psychotherapeutic intervention. prognosis: guarded 40 minutes spent in discharge activities including conferring with patients . ��������������������������������������������� <ELECTRONICALLY SIGNED> ���������������������������������������� By: Manjit Marr DO ��������������������������������������������� 08/01/182310 46 48 Manjit Marr DO /nt
== END 2018-07-31 14:45 | disposition home or self-care (01) | DRG 885 ==
LOC: ER 12:16 → EROBS 14:13 → SBH 14:13
PROVIDERS: Internal Medicine; Physician Assistant; ADMIT Psychiatry & Neurology Psychiatry
DX: F32.3 Major depressive disorder, single episode, severe with psychotic features (principal); K21.9 Gastro-esophageal reflux disease without esophagitis; I49.8 Other specified cardiac arrhythmias; F41.1 Generalized anxiety disorder; F03.90 Unspecified dementia, unspecified severity, without behavioral disturbance, psychotic disturbance, mood disturbance, and anxiety; E55.9 Vitamin D deficiency, unspecified; Z79.899 Other long term (current) drug therapy; Z88.0 Allergy status to penicillin; Z88.2 Allergy status to sulfonamides; Z91.041 Radiographic dye allergy status
CPT/HCPCS: 10880

== ENCOUNTER 2018-09-06 08:05 | Emergency (ER) | payer OTHER ==
[~2018-09-06] VITALS: Ht 165.1 cm; Wt 49.9 kg
[~2018-09-06 08:05] MED LIST: ATIVAN0.5 MG PO; BUSPIRONE HCL5 MG PO; CITRACAL + D31 EACH PO; CLONAZEPAM 0.50.5 M1 PO; CYMBALTA30 MG PO; CYMBALTA60 MG PO; FLAXSEED OIL1000 MG PO; LIDODERM1 EACH TRANSDERM; MACROBID 100 M100 M1 PO; PROTONIX 20 MG20 M1 PO; SALMON OIL 1,01 EACH PO; SEROQUEL XR 20200 MG PO; VITAMIN D1000 UNI1 PO; ZEGERID OTC 201 EACH PO
[2018-09-06] MEDS ORDERED: ATIVAN0.5 MG PO (08:17)
[2018-09-06] MEDS ORDERED: QUETIAPINE FUM100 MG PO (08:18)
[2018-09-06 09:05] LABS: ABSOLUTE NEUTROPHILS 2.6 thou/uL (1.4-8.2); BASOPHILS 0.7 % (0.0-2.0); HEMATOCRIT 38.4 % (37.0-47.0); LYMPHOCYTES 23.8 % (24.0-44.0); MCH 31.4 pg (26.0-34.0); MCHC 33.9 g/dL (28.0-37.0); MCV 92.5 fL (80.0-100.0); MONOCYTES 11.6 % (1.0-8.0); PLATELET COUNT 254 thou/uL (150-400); POLYS 62.9 % (36.0-66.0); RBC 4.15 mil/uL (4.20-5.00); WBC 4.2 thou/uL (4.0-11.0)
[2018-09-06 09:17] LABS: ANION GAP 7 mmol/L (7-16); BUN 28 mg/dL (7-18); CALCIUM 10.1 mg/dL (8.5-10.1); CHLORIDE 103 mmol/L (98-107); CO2 30 mmol/L (21-32); CREATININE 0.7 mg/dL (0.6-1.0); GLUCOSE 99 mg/dL (74-106); POTASSIUM 3.7 mmol/L (3.5-5.1); SODIUM 140 mmol/L (136-145)
[2018-09-06 09:23] LABS: ALBUMIN 3.8 g/dL (3.4-5.0); SALICYLATE < 2.8 mg/dL (2.8-20.0); SGOT 17 U/L (15-37); SGPT 24 U/L (30-65); TOTAL BILIRUBIN 0.8 mg/dL (<0.1-1.0); TOTAL PROTEIN 6.8 g/dL (6.4-8.2)
[2018-09-06 09:45] LABS: URINE BILIRUBIN NEGATIVE (Negative); URINE BLOOD NEGATIVE (Negative); URINE CLARITY CLEAR; URINE COLOR YELLOW; URINE GLUCOSE-RANDOM* NEGATIVE (Negative); URINE KETONES NEGATIVE (Negative); URINE LEUKOCYTES-REFLEX NEGATIVE (Negative); URINE NITRITE-REFLEX NEGATIVE (Negative); URINE PROTEIN (DIPSTICK) NEGATIVE (Negative); URINE SPECIFIC GRAVITY <= 1.005 (1.005-1.035); URINE UROBILINOGEN 0.2 E.U./dl (0.2-1.0)
[2018-09-06 09:52] LABS: AMP/METHAMP Negative (Negative); BARBITURATES Negative (Negative); BENZODIAZEPINES Negative (Negative); COCAINE Negative (Negative); METHADONE Negative (Negative); OPIATES Negative (Negative); PCP Negative (Negative)
[2018-09-06 12:57] VITALS: BP 110/57
== END 2018-09-06 15:55 ==
LOC: ER 08:05
PROVIDERS: Emergency Medicine
DX: F03.90 Unspecified dementia, unspecified severity, without behavioral disturbance, psychotic disturbance, mood disturbance, and anxiety (principal); F22 Delusional disorders; Z91.041 Radiographic dye allergy status; Z88.0 Allergy status to penicillin; Z88.2 Allergy status to sulfonamides; Z79.899 Other long term (current) drug therapy

== ENCOUNTER 2018-12-17 10:09 | Emergency (ER) | payer OTHER ==
[~2018-12-17] VITALS: Ht 162.6 cm; Wt 54.4 kg
[~2018-12-17 10:09] MED LIST changes: +QUETIAPINE FUM100 MG PO
[2018-12-17 11:13] LABS: HEMATOCRIT 36.6 % (37.0-47.0); HEMOGLOBIN 12.4 gm/dL (12.0-15.0); MCH 31.9 pg (26.0-34.0); MCHC 33.8 g/dL (28.0-37.0); MCV 94.3 fL (80.0-100.0); PLATELET COUNT 172 thou/uL (150-400); RBC 3.88 mil/uL (4.20-5.00); RDW 14.6 % (10.5-14.5); WBC 3.4 thou/uL (4.0-11.0)
[2018-12-17 11:23] LABS: ANION GAP 6 mmol/L (7-16); BUN 26 mg/dL (7-18); CALCIUM 9.2 mg/dL (8.5-10.1); CHLORIDE 105 mmol/L (98-107); CO2 28 mmol/L (21-32); CREATININE 0.7 mg/dL (0.6-1.0); GLUCOSE 136 mg/dL (74-106); POTASSIUM 3.8 mmol/L (3.5-5.1); SODIUM 139 mmol/L (136-145)
[2018-12-17 11:34] LABS: TROPONIN-I <0.06 ng/mL (<0.06)
[2018-12-17 12:01] LABS: ABSOLUTE NEUTROPHILS 2.3 thou/uL (1.4-8.2); ANISOCYTOSIS 2+
[2018-12-17 14:27] LABS: URINE BILIRUBIN NEGATIVE (Negative); URINE BLOOD NEGATIVE (Negative); URINE CLARITY CLEAR; URINE COLOR YELLOW; URINE GLUCOSE-RANDOM* NEGATIVE (Negative); URINE KETONES NEGATIVE (Negative); URINE LEUKOCYTES-REFLEX NEGATIVE (Negative); URINE NITRITE-REFLEX NEGATIVE (Negative); URINE PROTEIN (DIPSTICK) NEGATIVE (Negative); URINE UROBILINOGEN 0.2 E.U./dl (0.2-1.0)
[2018-12-17 14:50] VITALS: BP 94/55
--- NOTE | 2018-12-17 15:28 | EKG ---
[place] [place] [address] [place] [address] ELECTROCARDIOGRAM REPORT Name: ALICIA DAMON [facility] [id number] Admission: 12/17/18 Attend Phys: Discharge: 12/17/18 Date of : 41 Report #: [id number] THIS REPORT FOR: //name// [facility] ED Test Date: 2018-12-17 Test Time: 10:25:58 Pat Name: ALICIA DAMON Department: Room: Gender: F Inbound Call Center Agent: JOSIE : 1945 Requested By: Brady Flores Order Number: [id number] MD: Esvin Moon Measurements Intervals [place] Rate: 56 P: 71 [place]: 159 QRS: 28 QRSD: 75 T: 69 QT: 429 QTc: 415 Interpretive Statements Sinus bradycardia Probable anteroseptal infarct, old Compared to ECG 07/30/2018 13:41:27 ST (T wave) deviation no longer present Electronically Signed On 12-17-2018 15:28:26 CDT by Esvin oMon [email or web address] <ELECTRONICALLY SIGNED> By: Esvin Moon MD, [facility] 12/17/18 1528 1025 1025 Esvin Moon MD, [facility] /EPI
== END 2018-12-17 14:50 | disposition home or self-care (01) ==
LOC: ER 10:09
PROVIDERS: Emergency Medicine
DX: R42 Dizziness and giddiness (principal); R55 Syncope and collapse; F03.90 Unspecified dementia, unspecified severity, without behavioral disturbance, psychotic disturbance, mood disturbance, and anxiety; Z88.0 Allergy status to penicillin; Z91.041 Radiographic dye allergy status; Z88.2 Allergy status to sulfonamides

== ENCOUNTER 2021-05-26 17:55 | Emergency (ER) | payer OTHER ==
[~2021-05-26] VITALS: Ht 160 cm; Wt 45.4 kg
[2021-05-26 18:21] LABS: MCH 31.2 pg (26.0-34.0); RBC 4.16 mil/uL (4.20-5.00)
[2021-05-26 18:23] LABS: HEMATOCRIT 39.4 % (37.0-47.0); MCHC 32.9 g/dL (28.0-37.0); MCV 94.8 fL (80.0-100.0); PLATELET COUNT 80 thou/uL (150-400); RDW 16.4 % (10.5-14.5); WBC 2.4 thou/uL (4.0-11.0)
[2021-05-26 19:20] LABS: ABSOLUTE NEUTROPHILS 0.3 thou/uL (1.4-8.2); ANISOCYTOSIS 2+; ATYPICAL LYMPHS 4 %; POIKILOCYTOSIS 2+; TARGET CELLS 2+
[2021-05-26 19:59] LABS: ALBUMIN 2.1 g/dL (3.4-5.0); ANION GAP 9 mmol/L (7-16); BUN 18 mg/dL (7-18); CALCIUM 10.3 mg/dL (8.5-10.1); CHLORIDE 92 mmol/L (98-107); CO2 22 mmol/L (21-32); CREATININE 0.9 mg/dL (0.6-1.0); DIRECT BILIRUBIN < 0.1 mg/dL (<0.1-0.2); GLUCOSE 153 mg/dL (74-106); LIPASE 153 U/L (73-393); POTASSIUM 4.8 mmol/L (3.5-5.1); SODIUM 123 mmol/L (136-145); TOTAL BILIRUBIN 0.5 mg/dL (0.2-1.0); TOTAL PROTEIN 4.8 g/dL (6.4-8.2)
[2021-05-26 21:02] VITALS: BP 76/51
[2021-05-26 21:04] LABS: SGOT 161 U/L (15-37); SGPT 201 U/L (30-65)
--- NOTE | 2021-05-27 15:55 | EKG ---
[facility] [place] [address] ELECTROCARDIOGRAM REPORT Name: ALICIA DAMON [facility] [id number] Admission: 05/26/21 Attend Phys: Discharge: 05/26/21 Date of : 41 Report #: [id number] [facility] ED Test Date: 2021-05-26 Test Time: 17:54:57 Pat Name: ALICIA DAMON Department: Room: Gender: F Gauge Operator: SUSY : 1945 Requested By: Anival Nunez Order Number: [id number] MD: Esvin Moon Measurements Intervals [place] Rate: 67 P: 59 [place]: 107 QRS: 76 QRSD: 174 T: -77 QT: 424 QTc: 448 Interpretive Statements Sinus rhythm Short CO interval Left bundle branch block ST and T wave abnormality consider electrolyte abnormality Compared to ECG 12/17/2018 10:25:58 Intraventricular conduction delay is now present Electronically Signed On 05-27-2021 15:55:19 FACE WORKER by Esvin Moon [email or web address] <ELECTRONICALLY SIGNED> By: Esvin Moon MD, [facility] 05/27/21 1555 1754 53 Esvni Moon MD, FACC /EPI
== END 2021-05-26 22:34 ==
LOC: ER 17:55
PROVIDERS: Student in an Organized Health Care Education/Training Program
DX: I46.9 Cardiac arrest, cause unspecified (principal); Z20.822 Contact with and (suspected) exposure to COVID-19; F02.80 Dementia in other diseases classified elsewhere, unspecified severity, without behavioral disturbance, psychotic disturbance, mood disturbance, and anxiety; Z79.899 Other long term (current) drug therapy; Z88.2 Allergy status to sulfonamides; Z88.0 Allergy status to penicillin; Z91.041 Radiographic dye allergy status